=== PATIENT | female | born 2000 | race Caucasian/White ===

== ENCOUNTER 2021-12-07 20:31 | Emergency (ER) | payer OTHER ==
[~2021-12-07] VITALS: Ht 175.3 cm; Wt 61.2 kg
[2021-12-07 20:34] VITALS: BP 120/84
--- NOTE | 2021-12-07 20:37 | NUR ---
PT OFFLOADED TO DANIELLE
--- NOTE | 2021-12-07 20:37 | NUR ---
PT [facility], TAKEN TO [facility] VIA EMS
[2021-12-08] MEDS ORDERED: KETOROLAC 60 MG/2 ML VIAL IM ONE
[2021-12-08] MEDS ORDERED: NAPR-54 PO (02:08)
[2021-12-08 02:13] VITALS: BP 118/80
== END 2021-12-08 02:13 | disposition home or self-care (01) ==
LOC: MED 20:31
DX: S43.402A Unspecified sprain of left shoulder joint, initial encounter (principal); S00.83XA Contusion of other part of head, initial encounter; W18.30XA Fall on same level, unspecified, initial encounter; Y93.89 Activity, other specified; Y92.89 Other specified places as the place of occurrence of the external cause; Y99.8 Other external cause status
CPT/HCPCS: 70450; 70486; 73030; 81025; 96372; 99284; J1885